=== PATIENT | female | born 1940 | race African-American/Black ===

== ENCOUNTER 2017-03-28 21:13 | Emergency (ER) | payer OTHER ==
[~2017-03-28] VITALS: Ht 167.6 cm; Wt 100.0 kg
[~2017-03-28 21:13] MED LIST: AMLO5TAB88; ASPI-518 PO; ATEN50TA PO; ATOR40TA70 PO; CALC-1232 PO; CHLO25TA27 PO; HYDR25TA PO; HYDRALAZINE; LOSA100T14 PO; POTA10TA2 PO; SIMV20TA6 PO
[2017-03-28 22:47] LABS: EOSINOPHILS % 2.3 % (0.0-5.0); HEMATOCRIT. 35.3 % (36.0-48.0); LYMPHOCYTES % 21.6 % (20.0-50.0); MEAN CORPUSCULAR HEMOGLOBIN 33.6 pg (28.0-32.0); MEAN CORPUSCULAR VOLUME 98.8 fL (81.0-99.0); MEAN PLATELET VOLUME 8.3 fl (7.4-10.4); MONOCYTES % 11.8 % (2.0-8.0); NEUTROPHILS % 63.3 % (40.0-76.0); PLATELET 248 x1000/uL (130-400); RED BLOOD CELL COUNT 3.57 mill/uL (4.2-5.4); RED CELL DISTRIBUTION WIDTH 12.7 % (11.6-14.6)
[2017-03-28 22:48] LABS: PROTHROMBIN TIME 10.8 sec (9.4-11.6)
[2017-03-28 23:17] LABS: CARBON DIOXIDE 31 mEq/L (21-32); CHLORIDE 99 mEq/L (98-107)
[2017-03-28 23:42] LABS: CLARITY URINE CLEAR (CLEAR); COLOR URINE YELLOW (YELLOW); KETONES URINE NEGATIVE (NEGATIVE); LEUKOCYTE ESTERASE URINE NEGATIVE (NEGATIVE); NITRITE URINE NEGATIVE (NEGATIVE); OCCULT BLOOD URINE TRACE (NEGATIVE); PROTEIN URINE NEGATIVE (NEGATIVE); SPECIFIC GRAVITY URINE 1.009 (1.005-1.030); UROBILINOGEN URINE 0.2 E.U./dL (0.2-1.0)
[2017-03-29 00:30] VITALS: BP 154/72
[2017-03-29] MEDS ORDERED: CLONIDINE 0.2MG TABLET PO ONE (00:45)
== END 2017-03-29 02:00 | disposition home or self-care (01) ==
LOC: ER 21:13
DX: I10 Essential (primary) hypertension (principal); R31.9 Hematuria, unspecified; E03.9 Hypothyroidism, unspecified; Z79.82 Long term (current) use of aspirin; Z87.39 Personal history of other diseases of the musculoskeletal system and connective tissue; Z90.710 Acquired absence of both cervix and uterus; Z90.49 Acquired absence of other specified parts of digestive tract
CPT/HCPCS: 36415; 71010; 80053; 81001; 83880; 84443; 85025; 85610; 87040; 87086; 93005; 99285

== ENCOUNTER 2017-04-02 19:29 | Emergency (ER) | payer OTHER ==
[~2017-04-02] VITALS: Ht 167.6 cm; Wt 100.0 kg
[2017-04-02 23:17] VITALS: BP 161/72
== END 2017-04-02 23:20 | disposition home or self-care (01) ==
LOC: ER 19:30
DX: I10 Essential (primary) hypertension (principal); E78.5 Hyperlipidemia, unspecified; M19.90 Unspecified osteoarthritis, unspecified site; Z79.82 Long term (current) use of aspirin; Z90.49 Acquired absence of other specified parts of digestive tract; Z90.710 Acquired absence of both cervix and uterus
CPT/HCPCS: 93005; 99283

== ENCOUNTER 2017-06-27 01:42 | Emergency (ER) | payer OTHER ==
[~2017-06-27] VITALS: Ht 172.7 cm; Wt 84.0 kg
[2017-06-27 09:10] VITALS: BP 171/88
== END 2017-06-27 09:40 | disposition home or self-care (01) ==
LOC: ER 01:42
DX: F41.0 Panic disorder [episodic paroxysmal anxiety] (principal); I10 Essential (primary) hypertension; Z79.82 Long term (current) use of aspirin
CPT/HCPCS: 99283

== ENCOUNTER 2017-06-29 00:18 | Emergency (ER) | payer OTHER ==
[~2017-06-29] VITALS: Ht 165.1 cm; Wt 91.0 kg
[2017-06-29 00:50] VITALS: BP 169/80
== END 2017-06-29 01:43 | disposition left against medical advice (07) ==
LOC: ER 00:18
DX: I10 Essential (primary) hypertension (principal); Z53.21 Procedure and treatment not carried out due to patient leaving prior to being seen by health care provider

== ENCOUNTER 2017-07-05 04:08 | Emergency (ER) | payer OTHER | END 2017-07-05 04:33 | disposition left against medical advice (07) | LOC: ER 04:08 | DX: Z53.21 Procedure and treatment not carried out due to patient leaving prior to being seen by health care provider (principal) ==

== ENCOUNTER 2018-11-06 14:30 | Emergency (ER) | payer OTHER ==
[~2018-11-06 14:30] MED LIST changes: -LOSA100T14 PO; +LOSA100T32 PO
== END 2018-11-06 16:41 | disposition left against medical advice (07) ==
LOC: ER 14:30
DX: R03.0 Elevated blood-pressure reading, without diagnosis of hypertension (principal); Z53.21 Procedure and treatment not carried out due to patient leaving prior to being seen by health care provider

== ENCOUNTER 2019-05-13 00:16 | Emergency (ER) | payer OTHER ==
[~2019-05-13] VITALS: Ht 167.6 cm; Wt 100.0 kg
[2019-05-13 02:48] LABS: BASOPHILS % 1.3 % (0.0-2.0); EOSINOPHILS % 1.4 % (0.0-5.0); HEMATOCRIT. 32.4 % (36.0-48.0); HEMOGLOBIN. 11.1 g/dL (12.0-16.0); LYMPHOCYTES % 30.9 % (20.0-50.0); MEAN CORPUSCULAR HEMOGLOBIN 33.9 pg (28.0-32.0); MEAN CORPUSCULAR VOLUME 98.8 fL (81.0-99.0); MEAN PLATELET VOLUME 7.7 fl (7.4-10.4); MONOCYTES % 9.7 % (2.0-8.0); NEUTROPHILS % 56.7 % (40.0-76.0); PLATELET 291 x1000/uL (130-400); RED BLOOD CELL COUNT 3.28 mill/uL (4.2-5.4); RED CELL DISTRIBUTION WIDTH 12.2 % (11.6-14.6)
[2019-05-13 02:55] LABS: CHLORIDE 96 mEq/L (98-107)
[2019-05-13 04:37] VITALS: BP 146/76
== END 2019-05-13 04:40 | disposition home or self-care (01) ==
LOC: ER 00:16
DX: R00.2 Palpitations (principal); M79.632 Pain in left forearm; I10 Essential (primary) hypertension; M19.90 Unspecified osteoarthritis, unspecified site; F17.210 Nicotine dependence, cigarettes, uncomplicated; Z90.710 Acquired absence of both cervix and uterus; Z79.82 Long term (current) use of aspirin
CPT/HCPCS: 36415; 71045; 83880; 84484; 93005; 99284

== ENCOUNTER 2020-11-28 21:50 | Emergency (ER) | payer OTHER ==
[~2020-11-28] VITALS: Ht 170.2 cm; Wt 69.0 kg
[~2020-11-28 21:50] MED LIST changes: +SIMV-43 PO; -SIMV20TA6 PO
[2020-11-28] MEDS ORDERED: AMLODIPINE 5MG TABLET PO ONE (22:45)
[2020-11-28] MEDS ORDERED: ACETAMINOPHEN 325MG TABLET PO ONE (22:45)
[2020-11-29 02:04] VITALS: BP 160/72
== END 2020-11-29 02:10 | disposition home or self-care (01) ==
LOC: ER 21:50
DX: R51.9 Headache, unspecified (principal); I10 Essential (primary) hypertension; Z79.899 Other long term (current) drug therapy; Z90.710 Acquired absence of both cervix and uterus
CPT/HCPCS: 93005; 99283

== ENCOUNTER 2020-12-06 00:45 | Emergency (ER) | payer OTHER ==
[~2020-12-06] VITALS: Ht 180.3 cm; Wt 82.0 kg
[2020-12-06 02:32] LABS: CHLORIDE 103 mEq/L (98-107)
[2020-12-06 02:55] VITALS: BP 150/72
[2020-12-06 02:57] LABS: CLARITY URINE CLEAR (CLEAR); COLOR URINE YELLOW (YELLOW); KETONES URINE NEGATIVE (NEGATIVE); LEUKOCYTE ESTERASE URINE NEGATIVE (NEGATIVE); NITRITE URINE NEGATIVE (NEGATIVE); OCCULT BLOOD URINE NEGATIVE (NEGATIVE); PROTEIN URINE NEGATIVE (NEGATIVE); SPECIFIC GRAVITY URINE 1.007 (1.005-1.030); UROBILINOGEN URINE 0.2 E.U./dL (0.2-1.0)
== END 2020-12-06 03:28 | disposition home or self-care (01) ==
LOC: ER 00:45
DX: I10 Essential (primary) hypertension (principal); Z79.899 Other long term (current) drug therapy; Z79.82 Long term (current) use of aspirin; Z90.710 Acquired absence of both cervix and uterus; Z96.641 Presence of right artificial hip joint
CPT/HCPCS: 36415; 80053; 81003; 93005; 99284

== ENCOUNTER 2020-12-12 22:40 | Emergency (ER) | payer OTHER ==
[~2020-12-12] VITALS: Ht 170.2 cm; Wt 96.0 kg
[2020-12-13 00:07] VITALS: BP 175/82
== END 2020-12-13 00:09 | disposition home or self-care (01) ==
LOC: ER 23:49
DX: I10 Essential (primary) hypertension (principal); Z79.899 Other long term (current) drug therapy; Z88.6 Allergy status to analgesic agent
CPT/HCPCS: 99281

== ENCOUNTER 2021-01-23 17:52 | Emergency (ER) | payer OTHER ==
[~2021-01-23] VITALS: Ht 170.2 cm; Wt 98.0 kg
[2021-01-23] MEDS ORDERED: DYR5 GT (18:10)
[2021-01-23] MEDS ORDERED: HYDRALAZINE HCL 50MG TABLET PO SCH (22:15)
[2021-01-23 23:08] LABS: BASOPHILS % 1.2 % (0.0-2.0); EOSINOPHILS % 2.9 % (0.0-5.0); HEMOGLOBIN. 11.8 g/dL (12.0-16.0); LYMPHOCYTES % 32.9 % (20.0-50.0); MEAN CORPUSCULAR HEMOGLOBIN 33.3 pg (28.0-32.0); MEAN CORPUSCULAR VOLUME 98.4 fL (81.0-99.0); MEAN PLATELET VOLUME 7.8 fl (7.4-10.4); MONOCYTES % 10.6 % (2.0-8.0); NEUTROPHILS % 52.4 % (40.0-76.0); PLATELET 269 x1000/uL (130-400); RED BLOOD CELL COUNT 3.56 mill/uL (4.2-5.4); RED CELL DISTRIBUTION WIDTH 12.5 % (11.6-14.6)
[2021-01-23 23:14] LABS: CHLORIDE 101 mEq/L (98-107)
[2021-01-24 00:07] VITALS: BP 168/84
[2021-01-24] MEDS ORDERED: HYDR-4135 MT (00:08)
== END 2021-01-24 00:20 | disposition home or self-care (01) ==
LOC: ER 17:52
DX: I10 Essential (primary) hypertension (principal); Z88.8 Allergy status to other drugs, medicaments and biological substances; Z79.82 Long term (current) use of aspirin
CPT/HCPCS: 36415; 80053; 84484; 85025; 93005; 99284

== ENCOUNTER 2022-07-22 19:07 | Emergency (ER) | payer OTHER ==
[~2022-07-22] VITALS: Ht 170.2 cm; Wt 104.2 kg
[~2022-07-22 19:07] MED LIST changes: -AMLO5TAB88; -ATEN50TA PO; -ATOR40TA70 PO; -CALC-1232 PO; -CHLO25TA27 PO; +DYR5 GT; +HYDR-4135 MT; -HYDR25TA PO; -HYDRALAZINE; -LOSA100T32 PO; -POTA10TA2 PO; -SIMV-43 PO
[2022-07-23] MEDS ORDERED: [UNRECOGNIZED DRUG - CODE] MT (04:40)
[2022-07-23] MEDS ORDERED: HYDR50TA MT (04:40)
[2022-07-23] MEDS ORDERED: HYDROCHLOROTHIAZIDE 25MG TABLET PO ONE (04:45)
[2022-07-23 05:48] VITALS: BP 164/79
== END 2022-07-23 05:49 | disposition home or self-care (01) ==
LOC: ER 19:07
DX: I16.0 Hypertensive urgency (principal); M19.90 Unspecified osteoarthritis, unspecified site; Z79.82 Long term (current) use of aspirin; Z90.710 Acquired absence of both cervix and uterus; Z96.652 Presence of left artificial knee joint; Z96.642 Presence of left artificial hip joint; Z88.8 Allergy status to other drugs, medicaments and biological substances
CPT/HCPCS: 99281

== ENCOUNTER 2023-01-25 20:40 | Emergency (ER) | payer OTHER ==
[~2023-01-25] VITALS: Ht 170.2 cm; Wt 105.0 kg
[~2023-01-25 20:40] MED LIST changes: +HYDR50TA MT; +[UNRECOGNIZED DRUG - CODE] MT
[2023-01-25 20:53] VITALS: O2SAT 100
[2023-01-26 00:03] LABS: HEMATOCRIT. 34.5 % (36.0-48.0); HEMOGLOBIN. 11.2 g/dL (12.0-16.0); MEAN CORPUSCULAR HEMOGLOBIN 33.2 pg (28.0-32.0); MEAN CORPUSCULAR HGB CONC 32.6 g/dL (31.0-37.0); MEAN CORPUSCULAR VOLUME 101.9 fL (81.0-99.0); MEAN PLATELET VOLUME 8.5 fl (7.4-10.4); PLATELET 246 x1000/uL (130-400); RED BLOOD CELL COUNT 3.39 mill/uL (4.2-5.4); RED CELL DISTRIBUTION WIDTH 12.2 % (11.6-14.6); WHITE BLOOD COUNT 4.8 x1000/uL (4.5-11.0)
[2023-01-26 00:14] LABS: DIFFERENTIAL COMMENT 1
[2023-01-26 00:23] LABS: CLARITY URINE CLEAR (CLEAR); COLOR URINE YELLOW (YELLOW); GLUCOSE URINE NEGATIVE (NEGATIVE); KETONES URINE NEGATIVE (NEGATIVE); LEUKOCYTE ESTERASE URINE NEGATIVE (NEGATIVE); NITRITE URINE NEGATIVE (NEGATIVE); OCCULT BLOOD URINE NEGATIVE (NEGATIVE); PROTEIN URINE NEGATIVE (NEGATIVE); SPECIFIC GRAVITY URINE 1.003 (1.005-1.030); UROBILINOGEN URINE 0.2 E.U./dL (0.2-1.0)
[2023-01-26 00:48] LABS: CHLORIDE 101 mEq/L (98-107); INDEX HEMOLYSI 1 (1-3); INDEX ICTERIC 1 (1-4); INDEX LIPEMIC 1 (1-3); POTASSIUM 3.7 mEq/L (3.5-5.1); SODIUM 137 mEq/L (136-145)
[2023-01-26 01:01] LABS: ALANINE AMINOTRANSFERASE 24 IU/L (13-61); ALBUMIN 3.6 g/dL (3.4-5.0); ASPARTATE AMINOTRANSFERASE 22 IU/L (15-37); BILIRUBIN TOTAL 0.4 mg/dL (0.1-1.0); CALCIUM 9.1 mg/dL (8.5-10.1); CARBON DIOXIDE 30 mEq/L (21-32); CREATININE 0.9 mg/dL (0.6-1.3); GLUCOSE 106 mg/dL (70-105); NT PRO B-TYPE NATRIURETIC PEP 256 pg/mL (5-125); PROTEIN TOTAL 7.4 g/dL (6.0-8.3); TROPONIN I HIGH SENSITIVITY 17 ng/L (<54); UREA NITROGEN BLOOD 10 mg/dL (7-21)
[2023-01-26 01:58] VITALS: BP 145/64; PULSE 62; RESP 16; TEMP 98.2
[2023-01-26 07:08] LABS: PLATELET ESTIMATE NORMAL
== END 2023-01-26 02:16 | disposition home or self-care (01) ==
LOC: ER 20:40
DX: I10 Essential (primary) hypertension (principal); M19.90 Unspecified osteoarthritis, unspecified site; Z88.8 Allergy status to other drugs, medicaments and biological substances; Z98.890 Other specified postprocedural states; Z96.653 Presence of artificial knee joint, bilateral; Z90.710 Acquired absence of both cervix and uterus
CPT/HCPCS: 36415; 71045; 80053; 81003; 83880; 84484; 85025; 99284

== ENCOUNTER 2023-02-15 18:29 | Emergency (ER) | payer OTHER ==
[~2023-02-15] VITALS: Ht 167.6 cm; Wt 99.8 kg
[2023-02-15 18:59] VITALS: BP 155/86; PULSE 97; RESP 18; TEMP 98.5; O2SAT 100
== END 2023-02-15 20:44 | disposition left against medical advice (07) ==
LOC: ER 18:29
DX: Z53.21 Procedure and treatment not carried out due to patient leaving prior to being seen by health care provider (principal)
CPT/HCPCS: 99281

== ENCOUNTER 2023-03-08 04:33 | Emergency (ER) | payer OTHER ==
[~2023-03-08] VITALS: Ht 170.2 cm; Wt 100.0 kg
[2023-03-08 04:40] VITALS: PULSE 102; RESP 18
[2023-03-08 04:42] VITALS: BP 143/77; TEMP 98.3; O2SAT 100
== END 2023-03-08 05:21 | disposition home or self-care (01) ==
LOC: ER 05:08
DX: S50.362A Insect bite (nonvenomous) of left elbow, initial encounter (principal); M19.90 Unspecified osteoarthritis, unspecified site; I10 Essential (primary) hypertension; Z90.710 Acquired absence of both cervix and uterus; Z96.653 Presence of artificial knee joint, bilateral; Z98.890 Other specified postprocedural states; W57.XXXA Bitten or stung by nonvenomous insect and other nonvenomous arthropods, initial encounter; Y93.89 Activity, other specified; Y92.89 Other specified places as the place of occurrence of the external cause; Y99.8 Other external cause status
CPT/HCPCS: 99282

== ENCOUNTER 2023-09-02 17:03 | Emergency (ER) | payer OTHER ==
[~2023-09-02] VITALS: Ht 167.6 cm; Wt 100.0 kg
[~2023-09-02 17:03] MED LIST changes: -HYDR-4135 MT; +HYDR50TA40 MT
[2023-09-02 17:10] VITALS: BP 155/70; PULSE 92; RESP 18; TEMP 98.5; O2SAT 100
[2023-09-02] MEDS ORDERED: ASPIRIN 325MG EC TABLET PO ONE (18:30)
[2023-09-02] MEDS ORDERED: HYDRALAZINE 20MG/ML VIAL IV ONE (19:00)
[2023-09-02 20:52] LABS: DIFFERENTIAL COMMENT 0; HEMATOCRIT. 33.3 % (36.0-48.0); HEMOGLOBIN. 11.3 g/dL (12.0-16.0); LYMPHOCYTES % 33.9 % (20.0-50.0); MEAN CORPUSCULAR HEMOGLOBIN 34.2 pg (28.0-32.0); MEAN CORPUSCULAR HGB CONC 34.1 g/dL (31.0-37.0); MEAN CORPUSCULAR VOLUME 100.3 fL (81.0-99.0); MEAN PLATELET VOLUME 7.7 fl (7.4-10.4); MONOCYTES % 10.9 % (2.0-8.0); NEUTROPHILS % 53.2 % (40.0-76.0); PLATELET 298 x1000/uL (130-400); RED BLOOD CELL COUNT 3.32 mill/uL (4.2-5.4); RED CELL DISTRIBUTION WIDTH 12.3 % (11.6-14.6); WHITE BLOOD COUNT 5.3 x1000/uL (4.5-11.0)
[2023-09-02 21:10] LABS: ALANINE AMINOTRANSFERASE 15 IU/L (10-49); ALBUMIN 4.2 g/dL (3.2-4.8); ASPARTATE AMINOTRANSFERASE 25 IU/L (<34); BILIRUBIN TOTAL 0.5 mg/dL (0.1-1.0); CALCIUM 8.8 mg/dL (8.7-10.4); CARBON DIOXIDE 30 mEq/L (21-32); CHLORIDE 93 mEq/L (98-107); CREATININE 0.8 mg/dL (0.6-1.0); GLUCOSE 100 mg/dL (70-105); POTASSIUM 3.7 mEq/L (3.5-5.1); PROTEIN TOTAL 6.7 g/dL (6.0-8.3); SODIUM 129 mEq/L (136-145); TROPONIN I HIGH SENSITIVITY 22 ng/L (3.0-34); UREA NITROGEN BLOOD 9 mg/dL (9-23)
== END 2023-09-02 22:15 | disposition left against medical advice (07) ==
LOC: ER 17:03
DX: R07.9 Chest pain, unspecified (principal); I10 Essential (primary) hypertension; Z90.710 Acquired absence of both cervix and uterus; Z96.653 Presence of artificial knee joint, bilateral; Z88.8 Allergy status to other drugs, medicaments and biological substances
CPT/HCPCS: 36415; 71045; 80053; 84484; 85025; 93005; 99285

== ENCOUNTER 2023-10-05 03:36 | Emergency (ER) | payer OTHER ==
[~2023-10-05] VITALS: Ht 167.6 cm; Wt 97.0 kg
[2023-10-05] MEDS ORDERED: IPRATROPIUM/ALBUTEROL 0.5-3(2.5)MG/3ML NEB HHN ONE (06:00)
[2023-10-05] MEDS ORDERED: ALBUTEROL (0.083%) 2.5MG/3ML NEB HHN ONE (06:00)
[2023-10-05 06:06] LABS: BASOPHILS % 0.9 % (0.0-2.0); DIFFERENTIAL COMMENT 0; EOSINOPHILS % 1.2 % (0.0-5.0); HEMATOCRIT. 33.6 % (36.0-48.0); HEMOGLOBIN. 11.5 g/dL (12.0-16.0); LYMPHOCYTES % 31.8 % (20.0-50.0); MEAN CORPUSCULAR HEMOGLOBIN 34.4 pg (28.0-32.0); MEAN CORPUSCULAR HGB CONC 34.3 g/dL (31.0-37.0); MEAN CORPUSCULAR VOLUME 100.1 fL (81.0-99.0); MEAN PLATELET VOLUME 7.9 fl (7.4-10.4); MONOCYTES % 11.6 % (2.0-8.0); NEUTROPHILS % 54.5 % (40.0-76.0); PLATELET 306 x1000/uL (130-400); RED BLOOD CELL COUNT 3.36 mill/uL (4.2-5.4); RED CELL DISTRIBUTION WIDTH 12.3 % (11.6-14.6); WHITE BLOOD COUNT 4.4 x1000/uL (4.5-11.0)
[2023-10-05 06:21] LABS: CHLORIDE 97 mEq/L (98-107); POTASSIUM 3.7 mEq/L (3.5-5.1); SODIUM 134 mEq/L (136-145)
[2023-10-05 06:22] LABS: CARBON DIOXIDE 31 mEq/L (21-32)
[2023-10-05 06:23] LABS: CALCIUM 9.3 mg/dL (8.7-10.4)
[2023-10-05 06:27] LABS: CREATININE 0.8 mg/dL (0.6-1.0); GLUCOSE 96 mg/dL (70-105); UREA NITROGEN BLOOD 13 mg/dL (9-23)
[2023-10-05 06:28] LABS: TROPONIN I HIGH SENSITIVITY 19 ng/L (3.0-34)
[2023-10-05] MEDS: PREDNISONE 20MG TABLET PO ONE (06:28)
[2023-10-05 06:29] LABS: ALANINE AMINOTRANSFERASE 17 IU/L (10-49); ALBUMIN 4.5 g/dL (3.2-4.8); ASPARTATE AMINOTRANSFERASE 26 IU/L (<34)
[2023-10-05 06:30] LABS: BILIRUBIN TOTAL 0.7 mg/dL (0.1-1.0); PROTEIN TOTAL 7.9 g/dL (6.0-8.3)
[2023-10-05 08:22] LABS: TROPONIN I HIGH SENSITIVITY 19 ng/L (3.0-34)
[2023-10-05] MEDS ORDERED: ALBUTEROL (0.083%) 2.5MG/3ML NEB HHN NR (09:36)
[2023-10-05] MEDS: IPRATROPIUM/ALBUTEROL 0.5-3(2.5)MG/3ML NEB HHN NR (10:05)
[2023-10-05 10:07] VITALS: PULSE 71; RESP 16; O2SAT 98
[2023-10-05] MEDS ORDERED: ALBU6.7H15 INH (11:26)
[2023-10-05] MEDS ORDERED: P50 MT (11:26)
[2023-10-05 12:03] VITALS: BP 143/69; PULSE 89; RESP 14; TEMP 97.6
== END 2023-10-05 12:20 | disposition home or self-care (01) ==
LOC: ER 03:36 → UNDOADMIN 09:35 → 5EST 09:35 → ER 12:20
DX: R07.9 Chest pain, unspecified (principal); R06.2 Wheezing; I10 Essential (primary) hypertension; Z90.710 Acquired absence of both cervix and uterus; Z90.49 Acquired absence of other specified parts of digestive tract; Z88.8 Allergy status to other drugs, medicaments and biological substances
CPT/HCPCS: 99285; 71045; 80053; 83880; 83690; 85025; 84484; 36415; 94640; 93005; J7512

== ENCOUNTER 2023-12-18 13:50 | Emergency (ER) | payer OTHER ==
[~2023-12-18] VITALS: Ht 170.2 cm; Wt 97.0 kg
[~2023-12-18 13:50] MED LIST changes: +ALBU6.7H15 INH; +P50 MT
[2023-12-18 14:00] VITALS: BP 158/67; PULSE 82; RESP 16; TEMP 98.2; O2SAT 99
== END 2023-12-18 15:49 | disposition home or self-care (01) ==
LOC: ER 13:50
DX: I10 Essential (primary) hypertension (principal); R51.9 Headache, unspecified; Z90.710 Acquired absence of both cervix and uterus; Z79.899 Other long term (current) drug therapy
CPT/HCPCS: 99281

== ENCOUNTER 2023-12-30 01:10 | Emergency (ER) | payer OTHER ==
[~2023-12-30] VITALS: Ht 172.7 cm; Wt 76.0 kg
[2023-12-30 01:41] LABS: EOSINOPHILS % 2.3 % (0.0-5.0); HEMATOCRIT. 33.3 % (36.0-48.0); HEMOGLOBIN. 11.3 g/dL (12.0-16.0); LYMPHOCYTES % 28.9 % (20.0-50.0); MEAN CORPUSCULAR HEMOGLOBIN 33.5 pg (28.0-32.0); MEAN CORPUSCULAR HGB CONC 33.8 g/dL (31.0-37.0); MEAN CORPUSCULAR VOLUME 99.1 fL (81.0-99.0); MEAN PLATELET VOLUME 7.5 fl (7.4-10.4); MONOCYTES % 13.5 % (2.0-8.0); NEUTROPHILS % 54.3 % (40.0-76.0); PLATELET 278 x1000/uL (130-400); RED BLOOD CELL COUNT 3.35 mill/uL (4.2-5.4); RED CELL DISTRIBUTION WIDTH 11.9 % (11.6-14.6); WHITE BLOOD COUNT 4.5 x1000/uL (4.5-11.0)
[2023-12-30 01:51] LABS: CHLORIDE 97 mEq/L (98-107); POTASSIUM 3.8 mEq/L (3.5-5.1); SODIUM 132 mEq/L (136-145)
[2023-12-30 01:52] LABS: CALCIUM 9.4 mg/dL (8.7-10.4); CARBON DIOXIDE 29 mEq/L (21-32)
[2023-12-30 01:57] LABS: CREATININE 0.9 mg/dL (0.6-1.0); GLUCOSE 104 mg/dL (70-105); UREA NITROGEN BLOOD 14 mg/dL (9-23)
[2023-12-30 01:58] LABS: TROPONIN I HIGH SENSITIVITY 16 ng/L (3.0-34)
[2023-12-30] MEDS: ASPIRIN 81MG TABLET PO NR (03:16)
[2023-12-30 05:09] VITALS: BP 154/77; PULSE 50; RESP 15; TEMP 98.9; O2SAT 100
== END 2023-12-30 05:35 | disposition left against medical advice (07) ==
LOC: ER 01:10 → EDBEDREQTM 05:07 → EDBEDREQ 05:07 → ER 05:35
DX: R07.9 Chest pain, unspecified (principal); I10 Essential (primary) hypertension; Z90.710 Acquired absence of both cervix and uterus; Z96.653 Presence of artificial knee joint, bilateral; Z98.890 Other specified postprocedural states; Z88.8 Allergy status to other drugs, medicaments and biological substances
CPT/HCPCS: 36415; 71045; 80048; 84484; 85025; 93005; 99285

== ENCOUNTER 2024-07-01 03:02 | Emergency (ER) | payer OTHER ==
[~2024-07-01] VITALS: Ht 167.6 cm; Wt 96.0 kg
[2024-07-01 03:18] VITALS: O2SAT 96
[2024-07-01 03:43] VITALS: BP 131/74; PULSE 104; RESP 16; TEMP 98.4; O2SAT 100
== END 2024-07-01 03:57 | disposition left against medical advice (07) ==
LOC: ER 03:21
DX: R51.9 Headache, unspecified (principal); Z53.21 Procedure and treatment not carried out due to patient leaving prior to being seen by health care provider
CPT/HCPCS: 93005

== ENCOUNTER 2024-08-03 20:02 | Emergency (ER) | payer OTHER ==
[~2024-08-03] VITALS: Ht 167.6 cm; Wt 78.0 kg
[2024-08-03 20:13] VITALS: BP 157/77; PULSE 87; RESP 16; TEMP 36.7; O2SAT 98
[2024-08-03] MEDS: ACETAMINOPHEN 325MG TABLET PO ONE (23:16)
[2024-08-03 23:28] LABS: BASOPHILS % 1.1 % (0.0-2.0); DIFFERENTIAL COMMENT 0; EOSINOPHILS % 2.3 % (0.0-5.0); HEMATOCRIT. 34.6 % (36.0-48.0); HEMOGLOBIN. 11.6 g/dL (12.0-16.0); LYMPHOCYTES % 29.4 % (20.0-50.0); MEAN CORPUSCULAR HEMOGLOBIN 33.6 pg (28.0-32.0); MEAN CORPUSCULAR HGB CONC 33.4 g/dL (31.0-37.0); MEAN CORPUSCULAR VOLUME 100.6 fL (81.0-99.0); MEAN PLATELET VOLUME 8.2 fl (7.4-10.4); NEUTROPHILS % 58.2 % (40.0-76.0); PLATELET 279 x1000/uL (130-400); RED BLOOD CELL COUNT 3.44 mill/uL (4.2-5.4); RED CELL DISTRIBUTION WIDTH 12.1 % (11.6-14.6); WHITE BLOOD COUNT 6.8 x1000/uL (4.5-11.0)
[2024-08-03 23:31] LABS: CHLORIDE 101 mEq/L (98-107); POTASSIUM 4.1 mEq/L (3.5-5.1); SODIUM 137 mEq/L (136-145)
[2024-08-03 23:32] LABS: CALCIUM 9.5 mg/dL (8.7-10.4); CARBON DIOXIDE 30 mEq/L (21-32)
[2024-08-03 23:37] LABS: GLUCOSE 106 mg/dL (70-105); UREA NITROGEN BLOOD 17 mg/dL (9-23)
[2024-08-03] MEDS ORDERED: TOPUD MT (23:50)
[2024-08-03] MEDS ORDERED: FLUT9.9S BOTHNSTRLS (23:50)
[2024-08-03] MEDS ORDERED: CLAR10 MT (23:50)
== END 2024-08-04 00:01 | disposition home or self-care (01) ==
LOC: ER 20:02
DX: G44.209 Tension-type headache, unspecified, not intractable (principal); J30.9 Allergic rhinitis, unspecified; I10 Essential (primary) hypertension; Z90.710 Acquired absence of both cervix and uterus; Z79.899 Other long term (current) drug therapy; Z79.82 Long term (current) use of aspirin
CPT/HCPCS: 36415; 80048; 85025; 99283

== ENCOUNTER 2024-11-05 19:31 | Emergency (ER) | payer OTHER ==
[~2024-11-05] VITALS: Ht 167.6 cm; Wt 97.0 kg
[~2024-11-05 19:31] MED LIST changes: +CLAR10 MT; +FLUT9.9S BOTHNSTRLS; +TOPUD MT
[2024-11-05 19:38] VITALS: TEMP 36.6; O2SAT 99
[2024-11-05 21:04] VITALS: BP 190/71; PULSE 72; RESP 18; O2SAT 100
== END 2024-11-05 21:07 | disposition home or self-care (01) ==
LOC: ER 19:31
DX: I10 Essential (primary) hypertension (principal); M19.90 Unspecified osteoarthritis, unspecified site; Z96.659 Presence of unspecified artificial knee joint; Z96.649 Presence of unspecified artificial hip joint; Z90.710 Acquired absence of both cervix and uterus; Z79.899 Other long term (current) drug therapy; Z79.82 Long term (current) use of aspirin
CPT/HCPCS: 99281

== ENCOUNTER 2024-12-27 22:32 | Emergency (ER) | payer MEDICARE, OTHER ==
[~2024-12-27 22:32] MED LIST changes: +DOXA1TAB2 PO; +PROP10TA10 PO; +VALS160T28 PO
[2024-12-28 02:00] VITALS: BP 178/71; PULSE 69; RESP 12; O2SAT 100
== END 2024-12-28 02:05 | disposition home or self-care (01) ==
LOC: ER 22:32
DX: I10 Essential (primary) hypertension (principal); M19.90 Unspecified osteoarthritis, unspecified site; Z79.82 Long term (current) use of aspirin; Z96.659 Presence of unspecified artificial knee joint; Z79.899 Other long term (current) drug therapy; Z88.8 Allergy status to other drugs, medicaments and biological substances
CPT/HCPCS: 99281

== ENCOUNTER 2025-01-25 03:02 | Emergency (ER) | payer OTHER ==
[2025-01-25 04:38] VITALS: BP 177/86; PULSE 62; RESP 18; TEMP 36.7; O2SAT 99
== END 2025-01-25 04:44 | disposition left against medical advice (07) ==
LOC: ER 03:02
DX: R42 Dizziness and giddiness (principal); I10 Essential (primary) hypertension; Z96.659 Presence of unspecified artificial knee joint; Z88.8 Allergy status to other drugs, medicaments and biological substances; Z79.899 Other long term (current) drug therapy
CPT/HCPCS: 99282